=== PATIENT | female | born 1955 | race Caucasian/White ===

== ENCOUNTER → 2020-10-21 | Outpatient (CLI) | payer OTHER ==
[~2020-10-21] MED LIST: BENADRYL 25MG C25 MG PO; ELIQUIS 2.5 MG2.5 MG PO; IBUPROFEN800 MG PO; PERCOCET 5/325 T1 EA PO; REQUIP0.5 MG PO; ZANTAC150 MG PO
== END ==
LOC: KOH-I 10:59
DX: M47.812 Spondylosis without myelopathy or radiculopathy, cervical region (principal); I65.22 Occlusion and stenosis of left carotid artery
CPT/HCPCS: 72040